=== PATIENT | male | born 1950 | race American Indian/Alaskan Native ===

== ENCOUNTER 2016-11-07 20:42 | Emergency (ER) | payer MEDICARE ==
[2016-11-07] MEDS ORDERED: XYLOCAINE 1% 20 mL ONE (21:39)
[2016-11-07] MEDS ORDERED: XYLOCAINE 1% 20 mL INFILTRATI ONE (21:43)
[2016-11-07] MEDS ORDERED: MARCAINE 0.5% INFILTRATI ONE ×2 (22:19→22:59)
[2016-11-07] MEDS ORDERED: BOOSTRIX IM ONE (22:34)
[2016-11-07] MEDS ORDERED: TRIPLE ANTIBIOTIC TP ONE ×2 (22:53→23:01)
--- NOTE | 2016-11-07 23:13 | Emergency Department Report ---
HPI - General Chief Complaint: Extremity Problem,Nontraumatic Time Seen by Provider: 11/07/16 21:16 - HPI HPI: Room 17 Patient is a 58-year-old male presenting with a chief complaint of inability to remove her ring from finger. The patient has history of dementia and is unable to provide a full history. The patient reportedly has had a ring stuck on his left ring finger and was unable to be removed at the primary physician's office. Patient's finger swollen and the patient was instructed to come to the ED. Location: Left Ring finger Duration: Unknown Quality: Pain Severity: Moderate Modifying factors: [see above] Context: [see above] Mode of transportation: [not driving] ED Past Medical Hx - Past Medical History Hx Hypertension: Yes Hx CVA: Yes Hx Seizures: Yes Hx Dementia: Yes Hx HIV: No Additional medical history: ALZHEIMERS - Surgical History Additional Surgical History: LEFT NECK / ? CAROTID ARTERY - Family History Family history: no significant - Social History Smoking Status: Unknown if ever smoked Substance Use Type: None - Medications Home Medications: Home Medications Medication Instructions Recorded Confirmed Last Taken Type AtorvaSTATin [Lipitor] 40 mg PO DAILY 05/05/16 11/07/16 11/07/16 History Ferrous Sulfate [Feosol 325 MG tab] 325 mg PO QDAY 05/05/16 11/07/16 11/07/16 History levETIRAcetam [Keppra TAB] 750 mg PO BID 05/05/16 11/07/16 11/07/16 History Pantoprazole [Protonix TAB] 40 mg PO QDAY #30 tablet 05/11/16 11/07/16 11/07/16 Rx Clopidogrel [Plavix] 75 mg PO QDAY 11/07/16 11/07/16 11/07/16 History Diclofenac [Angel Smith] 75 mg PO BID 11/07/16 11/07/16 11/07/16 History Donepezil HCl 10 mg PO QHS 11/07/16 11/07/16 11/07/16 History Ferrous Sulfate [Feosol] 1 tab PO QDAY 11/07/16 11/07/16 11/07/16 History HYDROcodone/APAP 5-325 [[place] 1 - 2 each PO Q6HR PRN #14 tablet 11/07/16 Unknown Rx 5/325] Sulfamethoxazole/Trimethoprim 1 each PO BID #20 tablet 11/07/16 Unknown Rx [Bactrim DS TAB] traZODone [Desyrel] 1 mg PO QHS 11/07/16 11/07/16 11/06/16 History ED Review of Systems ROS: Stated complaint: RING STUCK ON FINGER Other details as noted in HPI Comment: Unobtainable due to pts medical conditions Physical Exam - Physical Exam Vital Signs: Vital Signs 11/07/16 11/07/16 11/07/16 20:48 20:49 20:51 Temperature 98.0 F Pulse Rate 75 97 H 77 Respiratory 18 12 Rate Blood Pressure 154/80 142/82 142/82 O2 Sat by Pulse 100 100 100 Oximetry 11/07/16 11/07/16 11/07/16 20:53 20:55 20:57 Temperature Pulse Rate 72 79 72 Respiratory 13 13 11 L Rate Blood Pressure 142/82 142/82 142/82 O2 Sat by Pulse 100 100 100 Oximetry 11/07/16 11/07/16 11/07/16 20:59 21:00 21:01 Temperature Pulse Rate 81 75 75 Respiratory 14 14 13 Rate Blood Pressure 137/74 137/74 137/74 O2 Sat by Pulse 100 100 100 Oximetry 11/07/16 11/07/16 11/07/16 21:03 21:05 21:07 Temperature Pulse Rate 72 73 74 Respiratory 13 14 12 Rate Blood Pressure 137/74 137/74 137/74 O2 Sat by Pulse 100 100 100 Oximetry 11/07/16 21:16 Temperature Pulse Rate Respiratory 18 Rate Blood Pressure O2 Sat by Pulse 100 Oximetry Physical Exam: GENERAL: The patient is well-developed well-nourished male lying on stretcher not appearing to be in acute distress. [] HEENT: Normocephalic. Atraumatic. Extraocular motions are intact. Patient has moist mucous membranes. NECK: Supple. Trachea midline CHEST/LUNGS: There is no respiratory distress noted. HEART/CARDIOVASCULAR: Regular. There is no tachycardia. There is no gallop rub or murmur. ABDOMEN: There is no abdominal distention. SKIN: There is obvious swelling to the left ring finger distal to his ring. Skin appears macerated and hasn't fall over. NEURO: The patient is awake and alert. The patient is mostly cooperative. The patient has normal speech MUSCULOSKELETAL: There is no evidence of acute injury. ED Course Vital Signs 11/07/16 11/07/16 11/07/16 20:48 20:49 20:51 Temperature 98.0 F Pulse Rate 75 97 H 77 Respiratory 18 12 Rate Blood Pressure 154/80 142/82 142/82 O2 Sat by Pulse 100 100 100 Oximetry 11/07/16 11/07/16 11/07/16 20:53 20:55 20:57 Temperature Pulse Rate 72 79 72 Respiratory 13 13 11 L Rate Blood Pressure 142/82 142/82 142/82 O2 Sat by Pulse 100 100 100 Oximetry 11/07/16 11/07/16 11/07/16 20:59 21:00 21:01 Temperature Pulse Rate 81 75 75 Respiratory 14 14 13 Rate Blood Pressure 137/74 137/74 137/74 O2 Sat by Pulse 100 100 100 Oximetry 11/07/16 11/07/16 11/07/16 21:03 21:05 21:07 Temperature Pulse Rate 72 73 74 Respiratory 13 14 12 Rate Blood Pressure 137/74 137/74 137/74 O2 Sat by Pulse 100 100 100 Oximetry 11/07/16 21:16 Temperature Pulse Rate Respiratory 18 Rate Blood Pressure O2 Sat by Pulse 100 Oximetry ED Medical Decision Making - Radiology Data Radiology results: image reviewed (left ring finger x-ray) interpreted by me: Left ring finger x-ray-no acute fractures, no foreign bodies Critical care attestation.: If time is entered above; I have spent that time in minutes in the direct care of this critically ill patient, excluding procedure time. ED Disposition Clinical Impression: Tight ring on finger Disposition: DISCHARGED TO HOME OR SELFCARE Is pt being admited?: No Condition: Stable Additional Instructions: Return to the emergency department immediately should you develop worsening symptoms, fever, inability to tolerate food or liquid or any other concerns. Prescriptions: HYDROcodone/APAP 5-325 [[place] 5/325] 1 - 2 each PO Q6HR PRN #14 tablet PRN Reason: Pain Sulfamethoxazole/Trimethoprim [Bactrim DS TAB] 1 each PO BID #20 tablet Referrals: VICKI TRISTAN MD [Staff Physician] - [facility] (Dr. Tristan is an orthopedic surgeon. Please follow up with him for further evaluation) Time of Disposition: 23:18 Blank Doc - Documentation Documentation: Digital block performed on the patient's left ring finger. Site was prepped with alcohol. Digital block performed using a mixture of bupivacaine 0.25% and lidocaine 1% plain in a one-to-one mixture. A total of approximately 3 mL's on the mixture was injected in the interdigital webspace] and left ring finger. Anesthesia was achieved. Original attempt at removing the ring was done using ring cutters. This was Subsequently abandoned and mini boltcutters were used to cut the ring off. Patient tolerated well. Nurse and instructed to irrigate the finger and to dress with bacitracin
[2016-11-08 00:38] VITALS: BP 140/84
--- NOTE | 2016-11-08 09:44 | XRay Report ---
LEFT RING FINGER 2 VIEWS: 11/07/16 20:42:00 CLINICAL: Swelling and laceration of the ring finger. Status post ring removal. FINDINGS: No fracture or dislocation. Marked swelling of the soft tissues at the PIP joint of the ring finger. Punctate calcifications in the soft tissues are likely dermal. No foreign body or soft tissue air. Mild arthritic changes. IMPRESSION: Marked soft tissue swelling of the ring finger at the PIP joint but no fracture or dislocation.
== END 2016-11-08 01:03 | disposition home or self-care (01) ==
LOC: ED 20:42
DX: S60.455A Superficial foreign body of left ring finger, initial encounter (principal); I10 Essential (primary) hypertension; F03.90 Unspecified dementia, unspecified severity, without behavioral disturbance, psychotic disturbance, mood disturbance, and anxiety; X58.XXXA Exposure to other specified factors, initial encounter; Y93.9 Activity, unspecified; Y92.9 Unspecified place or not applicable; Y99.9 Unspecified external cause status
CPT/HCPCS: 90471; 90715; 99283; A6250

== ENCOUNTER 2017-04-05 11:20 | Emergency (ER) | payer MEDICARE ==
--- NOTE | 2017-04-05 12:39 | Emergency Department Report ---
ED Seizure HPI - General Chief Complaint: Seizure Stated Complaint: SEIZURE Time Seen by Provider: 04/05/17 11:57 Source: EMS Mode of arrival: Stretcher Limitations: Other - History of Present Illness Initial Comments: 67-year-old male with past medical history of seizures, dementia and hypertension. Was brought in by EMS for evaluation following a seizure event at home. It is unknown how long the seizure lasted. Patient denies any significant complaints MD Complaint: seizure -: Sudden Description of Episode: loss of consciousness Witnessed:: No Seizure History: known seizure disorder Place: home Possible Precipitating Event: other (unknown) Associated Symptoms: denies other symptoms, other (unable to obtain history of present seizures due to her history of dementia) Treatments Prior to Arrival: none - Related Data Home Medications Medication Instructions Recorded Confirmed Last Taken AtorvaSTATin [Lipitor] 40 mg PO DAILY 05/05/16 04/05/17 11/07/16 levETIRAcetam [Keppra TAB] 750 mg PO BID 05/05/16 04/05/17 11/07/16 Clopidogrel [Plavix] 75 mg PO QDAY 11/07/16 04/05/17 11/07/[address] [Voltroger Dr] 75 mg PO BID 11/07/16 04/05/17 11/07/16 Donepezil HCl 10 mg PO QHS 11/07/16 04/05/17 11/07/16 traZODone [Desyrel] 50 mg PO QHS 11/07/16 04/05/17 11/06/16 Previous Rx's Medication Instructions Recorded Last Taken Type Pantoprazole [Protonix TAB] 40 mg PO QDAY #30 tablet 05/11/16 11/07/16 Rx Allergies Allergy/AdvReac Type Severity Reaction Status Date / Time No Known Allergies Allergy Unverified 05/05/16 14:17 ED Review of Systems ROS: Stated complaint: SEIZURE Other details as noted in HPI Comment: Unobtainable due to pts medical conditions (history of dementia) ED Past Medical Hx - Past Medical History Hx Hypertension: Yes Hx CVA: Yes Hx Seizures: Yes Hx Dementia: Yes Hx HIV: No Additional medical history: ALZHEIMERS - Surgical History Additional Surgical History: LEFT NECK / ? CAROTID ARTERY - Social History Smoking Status: Unknown if ever smoked - Medications Home Medications: Home Medications Medication Instructions Recorded Confirmed Last Taken Type AtorvaSTATin [Lipitor] 40 mg PO DAILY 05/05/16 04/05/17 11/07/16 History levETIRAcetam [Keppra TAB] 750 mg PO BID 05/05/16 04/05/17 11/07/16 History Pantoprazole [Protonix TAB] 40 mg PO QDAY #30 tablet 05/11/16 04/05/17 11/07/16 Rx Clopidogrel [Plavix] 75 mg PO QDAY 11/07/16 04/05/17 11/07/[address] [Voltaren Dr] 75 mg PO BID 11/07/16 04/05/17 11/07/16 History Donepezil HCl 10 mg PO QHS 11/07/16 04/05/17 11/07/16 History traZODone [Desyrel] 50 mg PO QHS 11/07/16 04/05/17 11/06/16 History ED Physical Exam - General Limitations: Other General appearance: in no apparent distress, anxious - Head Head exam: Present: atraumatic, normocephalic - Eye Eye exam: Present: normal appearance, PERRL, EOMI. Absent: scleral icterus, conjunctival injection, nystagmus - ENT ENT exam: Present: mucous membranes moist, TM's normal bilaterally, other (poor dentition) - Neck Neck exam: Present: normal inspection, tenderness, full ROM. Absent: meningismus, lymphadenopathy, thyromegaly - Respiratory Respiratory exam: Present: normal lung sounds bilaterally. Absent: respiratory distress, wheezes, rales, rhonchi, stridor, chest wall tenderness, accessory muscle use, decreased breath sounds, prolonged expiratory - Cardiovascular Cardiovascular Exam: Present: bradycardia, normal heart sounds. Absent: systolic murmur, diastolic murmur, rubs, gallop, clicks - GI/Abdominal GI/Abdominal exam: Present: soft, normal bowel sounds. Absent: tenderness, guarding, rebound, rigid, hyperactive bowel sounds, hypoactive bowel sounds, organomegaly, mass, bruit, pulsatile mass, hernia - Rectal Rectal exam: Present: deferred - Extremities Exam Extremities exam: Present: normal inspection, full ROM, normal capillary refill , pedal edema - Back Exam Back exam: Present: normal inspection, full ROM. Absent: CVA tenderness (L), muscle spasm, paraspinal tenderness, vertebral tenderness - Neurological Exam Neurological exam: Present: CN II-XII intact, other (unable to test due to history of dementia.) - Psychiatric Psychiatric exam: Present: normal affect - Skin Skin exam: Present: warm, dry ED Course Vital Signs 04/05/17 12:02 Temperature 97.7 F Pulse Rate 57 L Respiratory 18 Rate Blood Pressure 100/57 O2 Sat by Pulse 100 Oximetry - Reevaluation(s) Reevaluation #1: 04/05/17 14:29 Lactic acid is mildly elevated, this is due to dehydration and not sepsis. Patient will be hydrated and Lactic acid rechecked. ED Medical Decision Making - Lab Data Result diagrams: 04/05/17 13:07 04/05/17 13:07 - EKG Data -: EKG Interpreted by Me - EKG Data 04/05/17 Sinus bradycardia rate of 59 bpm normal axis,, LVH, some artifacts, nonspecific ST changes in V2 V3, normal intervals - Radiology Data Radiology results: report reviewed, image reviewed Critical Care Time: No Critical care attestation.: If time is entered above; I have spent that time in minutes in the direct care of this critically ill patient, excluding procedure time. ED Disposition Clinical Impression: Seizures Disposition: DC-01 TO HOME OR SELFCARE Is pt being admited?: No Does the pt Need Aspirin: No Condition: Stable Instructions: Recurrent Seizures Adult (ED) Additional Instructions: Follow up with your PCP in 2-3 days. Comply with your seizure medicines. Return back to ED if your problem gets worse Referrals: PRIMARY CARE, [Primary Care Provider] - 3-5 Days Time of Disposition: 15:48
--- NOTE | 2017-04-05 13:16 | Cat Scan Report ---
CT HEAD WITHOUT CONTRAST: 04/05/17 11:20:00 CLINICAL: Seizure. No comparison. TECHNIQUE: 2.5-mm noncontrast scans. FINDINGS: Ventricular enlargement and cortical atrophy which is more pronounced in the frontal and temporal lobes.Pronounced periventricular white matter hypodensities, greater in the frontal lobes. A 7 mm focus of encephalomalacia in right frontal lobe white matter. No suspicious hypodensity. No mass or mass effect. No hemorrhage, edema or extra-axial collection. The sinuses are clear. Normal orbits and soft tissues. The calvarium and skull base are intact. IMPRESSION: Chronic right frontal lobe white matter lacunar infarct and extensive cortical atrophy which is more pronounced in the frontal and temporal lobes. No evidence of acute infarct or hemorrhage.
[2017-04-05 13:25] LABS: Basophils % (Auto) 0.4 % (0.0-1.8); Eosinophils % (Auto) 1.3 % (0.0-4.3); Hemoglobin 11.2 gm/dl (11.8-15.2); Mean Corpuscular HGB Conc 32 % (32-34); Mean Corpuscular Volume 77 fl (84-94); Platelet Count 302 K/mm3 (140-440); Red Blood Count 4.57 M/mm3 (3.65-5.03); Red Cell Distribution Width 15.1 % (13.2-15.2); White Blood Count 6.5 K/mm3 (4.5-11.0)
--- NOTE | 2017-04-05 13:29 | XRay Report ---
AP CHEST :04/05/17 11:20:00 CLINICAL: Seizures. On Plavix. COMPARISON:05/05/16 FINDINGS: Normal heart and pulmonary vasculature. The lungs are normally expanded and clear. Deformity and heterogeneous density at the right eighth rib is suggestive of a possible rib lesion or fracture. No pneumothorax. IMPRESSION: Possible right eighth rib lesion or fracture.Recommend rib detail x-rays. No acute cardiopulmonary process.
[2017-04-05 13:30] LABS: Mean Corpuscular Hemoglobin 24 pg (28-32)
--- NOTE | 2017-04-05 13:34 | XRay Report ---
CERVICAL SPINE SERIES THREE VIEWS: 04/05/17 11:20:00 CLINICAL: Seizure and left-sided weakness. FINDINGS: Scoliosis and severe degenerative change from C2-3 through C7-T1. Large anterior osteophytes with apparent fusion of disc spaces. No fracture identified. Fair imaging of C1-2 and questionable widening of the left C1-2 facet joint. IMPRESSION: Possible widening of the left C1-2 facet joint. Extensive degenerative change with limits the quality of the exam. Recommend CT cervical spine.
[2017-04-05 13:42] LABS: Albumin 4.1 g/dL (3.9-5); Albumin/Globulin Ratio 0.9 %; Bilirubin,Total 0.4 mg/dL (0.1-1.2); Calcium 9.2 mg/dL (8.4-10.2); Chloride 101.8 mmol/L (98-107); Magnesium 2.1 mg/dL (1.7-2.3); Potassium 3.8 mmol/L (3.6-5.0); Total Protein 8.6 g/dL (6.3-8.2)
[2017-04-05] MEDS ORDERED: NACL 0.9% 1000 ML 1,000 ML IV ONE ×2 (14:17→17:25)
--- NOTE | 2017-04-05 15:08 | Cat Scan Report ---
FINAL REPORT PROCEDURE: CT CERVICAL SPINE WO CON TECHNIQUE: Computerized tomography of the cervical spine was performed from the skull base to T1 without contrast material. HISTORY: abnormal findings on Cervical spine XR, neck pain COMPARISON: No prior studies are available for comparison. FINDINGS: Vertebral body alignment is maintained. Atlantooccipital articulation is normal bilaterally. There is vertebral body height loss from C4 through C7, which has a chronic appearance by CT. No acute fracture lines are identified. There are severe degenerative disc changes, with disc space narrowing and osteophyte formation from C3-4 through C7/T1. IMPRESSION: Findings described above are favored to be chronic findings. If there is significant or persistent pain, MRI could be obtained to exclude ligamentous injury.
--- NOTE | 2017-04-05 15:55 | XRay Report ---
FINAL REPORT PROCEDURE: XR RIBS UNILAT 2V RT TECHNIQUE: Unilateral rib radiographs, 2 views of the RIGHT ribs. HISTORY: abnormal finding on Chest XR 1 view COMPARISON: No prior studies are available for comparison. FINDINGS: There is deformity of the right lateral 7th and 8th ribs. No linear lucency is seen, and this may be related to old healed fractures. No focal osseous lesion is seen. No underlying pulmonary infiltrate, effusion, or pneumothorax is seen IMPRESSION: Deformity of the right lateral 7th and 8th ribs may be related to old healed fractures. Correlate for any point tenderness to suggest acute nondisplaced fracture, otherwise these are likely chronic
[2017-04-05] MEDS ORDERED: KEPPRA 500 MG in NACL 0.9% 100 ML IV ONE (16:00)
[2017-04-05] MEDS ORDERED: NACL 0.9% IV ONE (16:00)
[2017-04-05] MEDS ORDERED: KEPPRA IV ONE (16:00)
[2017-04-05] MEDS ORDERED: NACL 0.9% 1000 ML 1,000 ML ONE ×2 (17:25)
[2017-04-05 17:41] LABS: Bilirubin,Urine NEG (Negative); Blood,Urine NEG (Negative); Ketones,Urine NEG (Negative); Leukocyte Esterase,Urine TR (Negative); Mucus,Urine FEW /HPF; Nitrite,Urine NEG (Negative); Protein,Urine <15 mg/dL mg/dL (Negative)
[2017-04-05 17:47] VITALS: BP 127/67
== END 2017-04-05 19:45 | disposition home or self-care (01) ==
LOC: ED 11:20
DX: R56.9 Unspecified convulsions (principal); I10 Essential (primary) hypertension; I63.9 Cerebral infarction, unspecified
CPT/HCPCS: 36415; 70450; 71010; 71100; 72040; 72125; 80053; 80177; 81001; 82140; 83735; 85025; 93005; 93010; 96361; 96374; 99285; G0480; J1953; J7030; 80320

== ENCOUNTER 2017-05-10 11:02 | Emergency (ER) | payer MEDICARE ==
[2017-05-10] MEDS ORDERED: KEPPRA 1,000 MG/NS 0.75% 100ML 1,000 MG/100 ML BAG IV ONE (12:56)
--- NOTE | 2017-05-10 13:09 | Emergency Department Report ---
HPI - General Chief Complaint: Seizure Time Seen by Provider: 05/10/17 12:58 - HPI HPI: Room 5 The patient is a 67-year-old male presenting with a chief complaint of seizure. Per EMS the patient had a seizure lasting approximately 2 minutes at 09:5 this morning. Patient has a history of dementia and is currently at his baseline per family and EMS. Patient currently denies any complaints. When asked how he is feeling currently the patient replies "I feel good." The patient states he has been compliant with his medication. Patient states he cannot tell me the last time he had a seizure Location: Central nervous system Duration: 2 minutes Quality: Generalized tonic-clonic Severity: Mild Modifying factors: [see above] Context: [see above] Mode of transportation: [not driving] ED Past Medical Hx - Past Medical History Previous Medical History?: Yes Hx Hypertension: Yes Hx CVA: Yes Hx Seizures: Yes Hx Dementia: Yes Additional medical history: ALZHEIMERS - Surgical History Past Surgical History?: Yes Additional Surgical History: LEFT NECK / ? CAROTID ARTERY - Family History Family history: no significant - Social History Smoking Status: Current Every Day Smoker Substance Use Type: None - Medications Home Medications: Home Medications Medication Instructions Recorded Confirmed Last Taken Type AtorvaSTATin [Lipitor] 40 mg PO DAILY 05/05/16 04/05/17 11/07/16 History Pantoprazole [Protonix TAB] 40 mg PO QDAY #30 tablet 05/11/16 04/05/17 11/07/16 Rx Clopidogrel [Plavix] 75 mg PO QDAY 11/07/16 04/05/17 11/07/16 History Diclofenac [Angel Smith] 75 mg PO BID 11/07/16 04/05/17 11/07/16 History Donepezil HCl 10 mg PO QHS 11/07/16 04/05/17 11/07/16 History traZODone [Desyrel] 50 mg PO QHS 11/07/16 04/05/17 11/06/16 History levETIRAcetam [Keppra TAB] 750 mg PO BID #90 tablet 05/10/17 Unknown Rx ED Review of Systems ROS: Stated complaint: SEIZURE Other details as noted in HPI Comment: All other systems reviewed and negative Constitutional: denies: chills, fever Eyes: denies: eye pain, eye discharge, vision change ENT: denies: ear pain, throat pain Respiratory: denies: cough, shortness of breath, wheezing Cardiovascular: denies: chest pain, palpitations Endocrine: no symptoms reported Gastrointestinal: denies: abdominal pain, nausea, diarrhea Genitourinary: denies: urgency, dysuria Musculoskeletal: denies: back pain, joint swelling, arthralgia Skin: denies: rash, lesions Neurological: other (seizure) Psychiatric: denies: anxiety, depression Hematological/Lymphatic: denies: easy bleeding, easy bruising Physical Exam - Physical Exam Vital Signs: Vital Signs 05/10/17 05/10/17 05/10/17 11:11 11:30 11:45 Temperature 97.9 F Pulse Rate 76 68 Respiratory 16 14 Rate Blood Pressure 104/61 O2 Sat by Pulse 98 98 Oximetry 05/10/17 12:00 Temperature Pulse Rate 68 Respiratory 15 Rate Blood Pressure 105/60 O2 Sat by Pulse 99 Oximetry Physical Exam: GENERAL: The patient is well-developed well-nourished male lying on stretcher not appearing to be in acute distress. [] HEENT: Normocephalic. Atraumatic. Extraocular motions are intact. Patient has moist mucous membranes. NECK: Supple. Trachea midline CHEST/LUNGS: Clear to auscultation. There is no respiratory distress noted. HEART/CARDIOVASCULAR: Regular. There is no tachycardia. There is no gallop rub or murmur. ABDOMEN: Abdomen is soft, nontender. Patient has normal bowel sounds. There is no abdominal distention. SKIN: There is no rash. There is no edema. There is no diaphoresis. NEURO: The patient is awake and alert. The patient is cooperative. The patient has normal speech MUSCULOSKELETAL: There is no evidence of acute injury. ED Course Vital Signs 05/10/17 05/10/17 05/10/17 11:11 11:30 11:45 Temperature 97.9 F Pulse Rate 76 68 Respiratory 16 14 Rate Blood Pressure 104/61 O2 Sat by Pulse 98 98 Oximetry 05/10/17 12:00 Temperature Pulse Rate 68 Respiratory 15 Rate Blood Pressure 105/60 O2 Sat by Pulse 99 Oximetry ED Medical Decision Making - Lab Data Result diagrams: 05/10/17 13:46 05/10/17 13:46 Laboratory Tests 05/10/17 05/10/17 13:46 13:46 WBC 12.1 H RBC 4.41 Hgb 10.8 L Hct 34.3 L MCV 78 L MCH 25 L MCHC 32 RDW 15.1 Plt Count 264 Lymph % (Auto) 6.6 L [place] % (Auto) 10.5 H Eos % (Auto) 0.2 Baso % (Auto) 0.1 Lymph # 0.8 L [place] # 1.3 H Eos # 0.0 Baso # 0.0 Seg Neutrophils % 82.6 H Seg Neutrophils # 10.0 H Sodium 141 Potassium 4.3 Chloride 102.1 Carbon Dioxide 27 Anion Gap 16 BUN 12 Creatinine 1.0 Estimated GFR > 60 BUN/Creatinine Ratio 12 Glucose 103 H Calcium 8.9 Magnesium 1.90 - Differential Diagnosis seizure disorder Critical care attestation.: If time is entered above; I have spent that time in minutes in the direct care of this critically ill patient, excluding procedure time. ED Disposition Clinical Impression: Seizure Disposition: DC-01 TO HOME OR SELFCARE Is pt being admited?: No Does the pt Need Aspirin: No Condition: Stable Instructions: Epilepsy (ED) Additional Instructions: Return to the emergency department immediately should you develop worsening symptoms, fever, inability to tolerate food or liquid or any other concerns. Prescriptions: levETIRAcetam [Keppra TAB] 750 mg PO BID #90 tablet Referrals: PRIMARY CARE, [Primary Care Provider] - 3-5 Days KIM ZHANG MD [Staff Physician] - 3-5 Days (Dr. Zhang is a neurologist. Please follow up with him if you do not already have a neurologist) Time of Disposition: 14:30
[2017-05-10 14:10] LABS: Basophils % (Auto) 0.1 % (0.0-1.8); Eosinophils % (Auto) 0.2 % (0.0-4.3); Hematocrit 34.3 % (35.5-45.6); Hemoglobin 10.8 gm/dl (11.8-15.2); Mean Corpuscular HGB Conc 32 % (32-34); Mean Corpuscular Volume 78 fl (84-94); Platelet Count 264 K/mm3 (140-440); Red Blood Count 4.41 M/mm3 (3.65-5.03); Red Cell Distribution Width 15.1 % (13.2-15.2); White Blood Count 12.1 K/mm3 (4.5-11.0)
[2017-05-10 14:23] LABS: Mean Corpuscular Hemoglobin 25 pg (28-32)
[2017-05-10 14:27] LABS: Anion Gap 16 mmol/L; BUN/Creatinine Ratio 12; Blood Urea Nitrogen 12 mg/dL (9-20); Calcium 8.9 mg/dL (8.4-10.2); Carbon Dioxide 27 mmol/L (22-30); Chloride 102.1 mmol/L (98-107); Glucose 103 mg/dL (75-100); Potassium 4.3 mmol/L (3.6-5.0); Sodium 141 mmol/L (137-145)
[2017-05-10 18:29] VITALS: BP 105/60
== END 2017-05-10 16:44 | disposition home or self-care (01) ==
LOC: ED 11:02
DX: R56.9 Unspecified convulsions (principal); Z86.73 Personal history of transient ischemic attack (TIA), and cerebral infarction without residual deficits; G30.9 Alzheimer's disease, unspecified; F02.80 Dementia in other diseases classified elsewhere, unspecified severity, without behavioral disturbance, psychotic disturbance, mood disturbance, and anxiety; I10 Essential (primary) hypertension; F17.200 Nicotine dependence, unspecified, uncomplicated
CPT/HCPCS: 36415; 80048; 82962; 83735; 85025; 96374; 99285; J1953

== ENCOUNTER 2017-06-02 19:40 | Emergency (ER) | payer MEDICARE ==
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
[2017-06-03 08:54] LABS: Hematocrit 37.1 % (35.5-45.6); Hemoglobin 11.5 gm/dl (11.8-15.2); Mean Corpuscular HGB Conc 31 % (32-34); Mean Corpuscular Volume 76 fl (84-94); Platelet Count 291 K/mm3 (140-440); Red Blood Count 4.87 M/mm3 (3.65-5.03); Red Cell Distribution Width 15.3 % (13.2-15.2); White Blood Count 3.6 K/mm3 (4.5-11.0)
--- NOTE | 2017-06-03 08:58 | XRay Report ---
Single view chest: Compared to 04/05/17. History: Medical clearance site. Findings: Normal cardiomediastinal silhouette. Trachea is midline. No consolidation, pneumothorax or pleural effusion. Impression: No acute cardiopulmonary findings.
[2017-06-03 09:07] LABS: Mean Corpuscular Hemoglobin 24 pg (28-32)
[2017-06-03 09:19] LABS: Alanine Aminotransferase 21 units/L (7-56); Albumin 3.8 g/dL (3.9-5); Albumin/Globulin Ratio 0.8 %; Alkaline Phosphatase 97 units/L (35-129); Anion Gap 16 mmol/L; BUN/Creatinine Ratio 13; Blood Urea Nitrogen 12 mg/dL (9-20); Calcium 8.9 mg/dL (8.4-10.2); Carbon Dioxide 26 mmol/L (22-30); Chloride 103.8 mmol/L (98-107); Glucose 85 mg/dL (75-100); Potassium 4.1 mmol/L (3.6-5.0); Sodium 142 mmol/L (137-145); Total Protein 8.3 g/dL (6.3-8.2)
--- NOTE | 2017-06-03 09:24 | Cat Scan Report ---
CT scan of head without IV contrast: History: Altered Mental status. Findings: Ventricles are midline in location upper limit of normal in size. Periventricular area of low attenuation. Moderate volume loss. Ill-defined focal areas of low attenuation left temporal lobe and right frontal lobes from chronic ischemia. No evidence of acute ischemia or hemorrhage. No extra-axial fluid collection. Normal brainstem and cerebellum. Deformed medial wall of left orbit probably related to old injury. Unremarkable sinuses and mastoid air cells. Impression: No acute intracranial abnormality. Chronic ischemic changes as detailed above. Small vessel ischemic changes and cortical atrophy.
[2017-06-03 09:36] VITALS: BP 106/61
[2017-06-03 09:41] LABS: Anisocytosis 1+; Blastocytes % (Manual) 0 %; Poikilocytosis 1+
[2017-06-03 09:42] LABS: Burr Cells Rare; Diff Status Complete; Elliptocytes Few; Hypochromasia 2+; Ovalocytes 1+; Target Cells Rare
[2017-06-03 11:55] LABS: Urine Drugs of Abuse Note Disclamer
[2017-06-03 12:06] LABS: Bacteria,Urine 1+ /HPF (Negative); Bilirubin,Urine NEG (Negative); Blood,Urine NEG (Negative); Ketones,Urine NEG (Negative); Leukocyte Esterase,Urine NEG (Negative); Nitrite,Urine NEG (Negative); Protein,Urine <15 mg/dL mg/dL (Negative); RBC,Urine < 1.0 /HPF (0.0-6.0); Urobilinogen,Urine < 2.0 mg/dL (<2.0)
[2017-06-03] MEDS ORDERED: VOLTAREN DR PO SCH (22:00)
[2017-06-03] MEDS ORDERED: NON-FORMULARY (Levetiracetam [Keppra Tab] 1,000 MG) PO SCH (22:00)
[2017-06-03] MEDS ORDERED: KEPPRA PO SCH (22:00)
[2017-06-03] MEDS ORDERED: ARICEPT PO SCH (22:00)
[2017-06-03] MEDS ORDERED: DESYREL PO SCH (22:00)
[2017-06-04] MEDS ORDERED: PROTONIX PO SCH (10:00)
[2017-06-04] MEDS ORDERED: PLAVIX PO SCH (10:00)
== END 2017-06-03 22:00 ==
LOC: ED 19:40 → EEVIPCON 19:40 → ED 06-03 22:00
DX: R41.82 Altered mental status, unspecified (principal); F23 Brief psychotic disorder; I10 Essential (primary) hypertension; G30.9 Alzheimer's disease, unspecified; F02.80 Dementia in other diseases classified elsewhere, unspecified severity, without behavioral disturbance, psychotic disturbance, mood disturbance, and anxiety; Z79.899 Other long term (current) drug therapy
CPT/HCPCS: 36415; 70450; 71010; 80053; 80307; 81001; 85007; 85025; 93005; 93010; 99285; G0480; 80320; A9270-GY